=== PATIENT | female | born 1960 | race Hispanic/Latino ===

== ENCOUNTER → 2023-10-29 | Outpatient (CLI) | payer OTHER | END | disposition home or self-care (01) | LOC: OIH 08:54 | PROVIDERS: ATTEND Physician Assistant | DX: Z13.6 Encounter for screening for cardiovascular disorders (principal) | CPT/HCPCS: 75571 ==

== ENCOUNTER 2024-09-19 15:11 | Emergency (ER) | payer OTHER ==
[~2024-09-19] VITALS: Ht 167.6 cm; Wt 108.9 kg
[2024-09-19 16:08] LABS: COVID19 (SARS ANTIGEN RAPID) PRESUMPTIVE NEGATIVE (NEGATIVE); INFLUENZA TYPE B Negative For Type B (NEGATIVE)
[2024-09-19 16:12] LABS: INFLUENZA TYPE A Positive For Type A (NEGATIVE)
[2024-09-19] MEDS ORDERED: OSEL75 PO (16:21)
--- NOTE | 2024-09-19 16:21 | ERN ---
General Chief Complaint: Flu Symptoms Stated Complaint: FLU LIKE SYMPTOMS SINCE WEDNESDAY Time Seen by MD: 15:31 Time Seen by Midlevel: 15:31 Source: patient History of Present Illness Initial Comments Patient is a 63-year-old female with a past medical history of atrial fibrillation presenting to the emergency department with flu-like symptoms that started four days ago. Symptoms consist of cough, congestion, and fever. She was scheduled for a cardiac ablation today but had to be rescheduled after she advised her cardiology that she was sick with fever and chills. On arrival she does report episodes of dizziness along with palpitations and chest pain. Denies any other symptoms. Current medications include metoprolol, olmesartan, atorvastatin, and Eliquis. Home Meds Active Scripts Oseltamivir Phosphate (Tamiflu) 75 Mg Cap, 75 MG PO BID for 5 Days, #10 CAP Prov:TIARRA ROCHA 09/19/24 Past Medical History Past Medical History: A-Fib, Hypothyroid Past Surgical History: ROS Dictation CONSTITUTIONAL: Negative except for HPI HEAD/FACE: Negative except for HPI EENT: Negative except for HPI RESPIRATORY: Negative except for HPI GASTROINTESTINAL/ABDOMINAL: Negative except for HPI GENITOURINARY: Negative except for HPI MUSCULOSKELETAL: Negative except for HPI INTEGUMENTARY: Negative except for HPI NEUROLOGICAL/PSYCH: Negative except for HPI HEMATOLOGIC/LYMPHATIC: Negative except for HPI All Systems Negative, Except as noted above. 13 point review of systems assessed and all negative except for above. Physical Exam Physical Exam Dictation Vital Signs reviewed General Appearance: Alert, oriented x 3, no acute distress, well developed, nourished. Head and Face: non-traumatic. Eyes: PERRL, pink conjunctivas, eyelid no trauma, anterior chamber with arcus senilis. Ears: Pinnas intact and no signs of trauma or erythema ear canals clear and no discharge TM no erythema Nose: No discharge, no bleeding. Oropharynx: Mouth normal, tongue pink, pharynx clear,no erythema, tonsils no exudates, no abscesses noted, mucous membrane moist Neck: Supple, non-tender, no thyromegaly, no masses, no JVD, no bruits Breast:Deferred Chest:No tenderness, no crepitus, no paradoxical movement, no retractions Lungs:Clear, well-ventilated, symmetric, no rales, no wheezing, no rhonchi, no stridor, good breath sounds bilaterally Heart: Regular rate, regular rhythm, no murmur, no gallops Vascular: no peripheral edema, Abdomen: Soft, positive bowel sounds, nondistended, no guarding, nontender, no rebound, no masses no hepatomegaly, no splenomegaly, no Vincent's sign, no hernias. Rectal: Deferred Genital: Deferred Neurological: Normal speech, motor function intact, sensory function intact Musculoskeletal: Neck nontender, full range of motion, back nontender, full range of motion, Extremities: nontender, full range of motion Skin: Color pink, dry, no turgor, no rash, no lacerations, no abrasions, no contusions. Lymphatic: Deferred Results Laboratory and Microbiology Lab and Micro Result Laboratory Tests Test 09/19/24 15:21 09/19/24 16:57 09/19/24 17:15 Influenza Type A Antigen Positive For Type A Influenza Type B Antigen Negative For Type B SARS-CoV-2 Antigen (Rapid) PRESUMPTIVE NEGATIVE Urine Color YELLOW (YELLOW) Urine Appearance CLOUDY (CLEAR) H Urine pH 6.0 (5.0-8.0) Urine Specific [place] 1.024 (1.001-1.031) Urine Protein 30 mg/dL (NEGATIVE) H Urine Glucose (UA) NEGATIVE mg/dL (NEGATIVE) Urine Ketones NEGATIVE mg/dL (NEGATIVE) Urine Occult Blood NEGATIVE (NEGATIVE) Urine Nitrate NEGATIVE (NEGATIVE) Urine Bilirubin NEGATIVE mg/dL (NEGATIVE) Urine Urobilinogen 0.2 mg/dL (0.2-1.0) Urine Leukocyte Esterase NEGATIVE Kevin/uL Urine RBC 0-1 /HPF (0-1) Urine WBC 2-5 /HPF (0-1) H Urine Squamous Epithelial Cells FEW /HPF (0-2) Urine Transitional Epithelial Cells FEW /HPF (None Seen) Urine Bacteria None /HPF (None Seen) White Blood Count 6.8 K/uL (4.8-10.8) Red Blood Count 4.91 MIL/uL (4.00-5.50) Hemoglobin 11.5 g/dL (12.0-16.0) L Hematocrit 37.4 % (36-48) Mean Corpuscular Volume 76.2 fL (79-99) L Mean Corpuscular Hemoglobin 23.4 pg (27.0-33.0) L Mean Corpuscular Hemoglobin Concent 30.7 g/dL (32.0-36.0) L Red Cell Distribution Width 18.7 % (11.0-15.5) H Platelet Count 224 K/uL (130-400) Mean Platelet Volume 10.6 fL (7.5-10.5) H Immature Granulocyte % (Auto) 0.3 % (0-1) Neutrophils (%) (Auto) 59.8 % (40.0-77.0) Lymphocytes (%) (Auto) 26.6 % (21.0-51.0) Monocytes (%) (Auto) 11.9 % (3.0-13.0) Eosinophils (%) (Auto) 0.7 % (0.0-8.0) Basophils (%) (Auto) 0.7 % (0.0-5.0) Neutrophils # (Auto) 4.1 K/uL (1.8-7.7) Lymphocytes # (Auto) 1.8 K/uL (1.0-4.8) Monocytes # (Auto) 0.8 K/uL (0.1-1.0) Eosinophils # (Auto) 0.05 K/uL (0.00-0.70) Basophils # (Auto) 0.05 K/uL (0.00-0.20) Absolute Immature Granulocyte (auto 0.02 K/uL (0-1) Nucleated Red Blood Cells 0.0 % (0.0-0.19) Sodium Level 141 mmol/L (136-145) Potassium Level 4.1 mmol/L (3.5-5.1) Chloride Level 106 mmol/L (101-111) Carbon Dioxide Level 28 mmol/L (21-32) Blood Urea Nitrogen 16 mg/dL (7-18) Creatinine 1.1 mg/dL (0.5-1.0) H Glomerular Filtration Rate Calc 56 mL/min (>90) Random Glucose 114 mg/dL (70-105) H Total Calcium 8.5 mg/dL (8.5-10.1) Troponin I High Sensitivity 6 ng/L (4-50) Labs Reviewed?: Yes MDM MDM: Patient is a 63-year-old female with a past medical history of atrial fibrillation presenting to the emergency department with flu-like symptoms that started four days ago. Symptoms consist of cough, congestion, and fever. She was scheduled for a cardiac ablation today but had to be rescheduled after she advised her cardiology that she was sick with fever and chills. On arrival she does report episodes of dizziness along with palpitations and chest pain. Denies any other symptoms. Current medications include metoprolol, olmesartan, atorvastatin, and Eliquis. On physical examination patient is in no acute respiratory distress. Vital signs are stable. Initially patient was triaged and place as a level four with a chief complaint of flu-like symptoms however when I evaluated the patient she reported chest pain along with palpitations. Given her history of atrial fibrillation with a scheduled ablation today I decided to obtain cardiac enzymes, EKG, chest x-ray, and blood work. Her CBC does not show any leukocytosis. Her chemistries are stable. Your cardiac enzymes are negative. Her EKG does not show any evidence of a STEMI. Your chest x-ray does not show any evidence of pneumonia. Her respiratory swabs are remarkable for influenza A. Patient will be started on Tamiflu and will be discharged home with outpatient management. Differential diagnosis: Viral syndrome, upper respiratory infection, strep, electrolyte abnormality, anemia There are no social concerns with this patient. Prescription drug management Prescriptions will include: Tamiflu Medical management and examination interpretation discussions were had by me with other qualified healthcare professionals as indicated for the patient's care. ED Course Orders Procedure Category Date Status Time Influenza Type A & B, LAB 09/19/24 Complete Rapid 15:19 Covid19 (Sars Antigen LAB 09/19/24 Complete Rapid) 15:19 Urinalysis Profile LAB 09/19/24 Complete 15:19 12 Lead Ekg Tracing- EKG 09/19/24 Logged Technical 15:20 Cbc With Differential LAB 09/19/24 In Process 16:36 Basic Metabolic Panel LAB 09/19/24 Complete 16:36 Troponin I High LAB 09/19/24 Complete Sensitivity 16:36 Chest 1vw RAD 09/19/24 Resulted 16:36 Vital Signs Date Time Temp Pulse Resp B/P (MAP) Pulse Ox O2 Delivery O2 Flow Rate FiO2 09/19/24 17:16 98.1 70 16 125/70 98 Room Air* 0 21 09/19/24 15:12 97.9 73 20 125/72 99 Room Air 0 [facility] [address] [place] [id number] IMAGING REPORT Signed PATIENT: DOUG KELLEY MR#: [id number] : 1960 SEX: F AGE: 63 LOCATION: [facility] ORDER 36 STATUS: REG ER REPORT#: [id number] SERVICE 35 REASON: sob/cough ORDERING PHYSICIAN: TIARRA ROCHA PROCEDURE: CXR1VW - CHEST 1VW Exam Type: CHEST 1VW Clinical Information: sob/cough Comparison: None Findings: The lungs are clear of infiltrates. The heart is normal in size. The bony and soft tissue structures of the chest are unremarkable. Impression: Clear lungs. DICTATED BY: ERIK CHAVEZ MD DATE: 09/19/241734 ELECTRONICALLY SIGNED BY: ERIK CHAVEZ MD DATE: 09/19/241736 DX & DISP Disposition: Discharge Departure Impression: Primary Impression: Influenza A Condition: Stable Scripts Oseltamivir Phosphate (Tamiflu) 75 Mg Cap 75 MG PO BID for 5 Days, #10 CAP Prov: TIARRA ROCHA 09/19/24 Additional Instructions: Your blood work today is stable. Your cardiac enzymes are negative. Your EKG does not show any evidence of a heart attack. Your chest x-ray does not show any evidence of pneumonia. You have tested positive for influenza a. Have given you a prescription for Tamiflu for outpatient management. You will need to follow up with your primary care doctor in 2-3 days for repeat evaluation. Referrals: TERESA OTTO MD, PA (PCP) Time of Disposition: 17:52 I have reviewed the case, and I agree with, Diagnosis and Plan I performed the substantive portion of the visit. I have reviewed and pers onally made and approve the management plan that is documented in the note by myself or the SANG. I acknowledge for responsibility for the patient's management plan. TIARRA ROCHA Sep 19, 2024 16:21
[2024-09-19 17:08] LABS: APPEARANCE,URINE CLOUDY (CLEAR); BILIRUBIN,URINE NEGATIVE (NEGATIVE); COLOR,URINE YELLOW (YELLOW); GLUCOSE, URINE (UA) NEGATIVE (NEGATIVE); KETONES,URINE NEGATIVE (NEGATIVE); LEUKOCYTE ESTERASE ,URINE NEGATIVE Leu/uL (NEGATIVE); NITRATE,URINE NEGATIVE (NEGATIVE); OCCULT BLOOD,URINE NEGATIVE (NEGATIVE); PROTEIN,URINE 30 mg/dL (NEGATIVE); UROBILINOGEN,URINE 0.2 mg/dL (0.2-1.0)
[2024-09-19 17:11] LABS: ADD UA MICROSCOPIC YES
[2024-09-19 17:13] LABS: MUCUS,URINE RARE LPF (None Seen); RBC,URINE 0-1 /HPF (0-1); SQUAMOUS EPITHELIAL CELL,UR FEW /HPF (0-2); TRANSITIONAL EPI CELLS,URINE FEW /HPF (None Seen)
[2024-09-19 17:16] VITALS: BP 125/70; PULSE 70; RESP 16; TEMP 98.1; O2SAT 98
[2024-09-19 17:23] LABS: BASOPHILS # (AUTO) 0.05 K/uL (0.00-0.20); BASOPHILS % (AUTO) 0.7 % (0.0-5.0); EOSINOPHILS # (AUTO) 0.05 K/uL (0.00-0.70); EOSINOPHILS % (AUTO) 0.7 % (0.0-8.0); HEMATOCRIT 37.4 % (36-48); IMMATURE GRANULOCYTE ABSOLUTE 0.02 K/uL (0-1); LYMPHOCYTES # (AUTO) 1.8 K/uL (1.0-4.8); LYMPHOCYTES % (AUTO) 26.6 % (21.0-51.0); MEAN CORPUSCULAR HEMOGLOBIN 23.4 pg (27.0-33.0); MEAN CORPUSCULAR HGB CONC 30.7 g/dL (32.0-36.0); MEAN CORPUSCULAR VOLUME 76.2 fL (79-99); MONOCYTES # (AUTO) 0.8 K/uL (0.1-1.0); MONOCYTES % (AUTO) 11.9 % (3.0-13.0); NEUTROPHILS # (AUTO) 4.1 K/uL (1.8-7.7); NEUTROPHILS % (AUTO) 59.8 % (40.0-77.0); PLATELET COUNT (AUTO) 224 K/uL (130-400); RED BLOOD CELL COUNT(AUTO) 4.91 MIL/uL (4.00-5.50); RED CELL DISTRIBUTION WIDTH 18.7 % (11.0-15.5); WHITE BLOOD COUNT (AUTO) 6.8 K/uL (4.8-10.8)
[2024-09-19 17:33] LABS: CREATININE 1.1 mg/dL (0.5-1.0); POTASSIUM 4.1 mmol/L (3.5-5.1)
--- NOTE | 2024-09-19 17:37 | HMCIMG ---
Exam Type: CHEST 1VW Clinical Information: sob/cough Comparison: None Findings: The lungs are clear of infiltrates. The heart is normal in size. The bony and soft tissue structures of the chest are unremarkable. Impression: Clear lungs.
--- NOTE | 2024-09-20 08:23 | EKG ---
[facility] Test Date: 2024-09-19 Test Time: 15:13:11 Pat Name: DOUG KELLEY Department: ED Room: Gender: F Heart Surgeon: [id number] : 1960 Requested By: ERIC ELLIOTT Order Number: [id number] Reading MD: Walter Watkins Measurements Intervals [place] Rate: 76 P: 20 MS: 146 QRS: 17 QRSD: 91 T: 230 QT: 383 QTc: 433 Interpretive Statements Sinus rhythm Repol abnrm suggests ischemia, lateral leads No previous ECG available for comparison Electronically Signed On 09-20-2024 17:02:16 DIRECTORY COMPILER by Walter Watkins Please click the below link to view image of tracing.
== END 2024-09-19 18:04 | disposition home or self-care (01) ==
LOC: EDH 15:11
DX: J10.1 Influenza due to other identified influenza virus with other respiratory manifestations (principal); I48.91 Unspecified atrial fibrillation; E03.9 Hypothyroidism, unspecified; Z20.822 Contact with and (suspected) exposure to COVID-19
CPT/HCPCS: 36415; 71045; 80048; 81001; 84484; 85025; 87426; 87804; 93005; 99285